=== PATIENT | female | born 1995 | race Two or more races ===

== ENCOUNTER 2019-06-01 02:51 | Emergency (ER) | payer MEDICAID, OTHER ==
[~2019-06-01] VITALS: Ht 154.9 cm; Wt 66.0 kg
[2019-06-01] MEDS ORDERED: ASPIRIN 81MG TABLET PO ONE (03:15)
[2019-06-01 03:32] LABS: BASOPHILS % 0.2 % (0.0-2.0); EOSINOPHILS % 2.2 % (0.0-5.0); HEMATOCRIT. 38.9 % (36.0-48.0); HEMOGLOBIN. 13.2 g/dL (12.0-16.0); LYMPHOCYTES % 29.2 % (20.0-50.0); MEAN CORPUSCULAR HEMOGLOBIN 28.2 pg (28.0-32.0); MEAN CORPUSCULAR VOLUME 83.2 fL (81.0-99.0); MEAN PLATELET VOLUME 9.7 fl (7.4-10.4); MONOCYTES % 8.6 % (2.0-8.0); NEUTROPHILS % 59.8 % (40.0-76.0); PLATELET 188 x1000/uL (130-400); RED BLOOD CELL COUNT 4.68 mill/uL (4.2-5.4); RED CELL DISTRIBUTION WIDTH 14.1 % (11.6-14.6)
[2019-06-01 03:38] LABS: CHLORIDE 109 mEq/L (98-107)
[2019-06-01 03:42] LABS: ETHANOL BLOOD < 10 mg/dL
[2019-06-01] MEDS ORDERED: LORAZEPAM 1MG TABLET PO ONE (03:45)
[2019-06-01 04:48] VITALS: BP 119/68
== END 2019-06-01 04:57 | disposition home or self-care (01) ==
LOC: ER 02:51
DX: F41.0 Panic disorder [episodic paroxysmal anxiety] (principal); R07.9 Chest pain, unspecified; D64.9 Anemia, unspecified; Z88.0 Allergy status to penicillin
CPT/HCPCS: 36415; 71045; 80053; 80320; 83605; 83880; 84484; 85025; 93005; 99284; Z7610; G0480